=== PATIENT | female | born 1965 ===

== ENCOUNTER 2025-02-08 09:50 | Outpatient (CLI) | payer OTHER | END 2025-02-08 09:52 | disposition home or self-care (01) | LOC: SONOGRAMA 09:50 | PROVIDERS: ATTEND Pathology Anatomic Pathology & Clinical Pathology | DX: D34 Benign neoplasm of thyroid gland (principal); E07.89 Other specified disorders of thyroid; E03.9 Hypothyroidism, unspecified ==